=== PATIENT | female | born 1995 | race Two or more races ===

== ENCOUNTER 2019-01-06 17:19 | Emergency (ER) | payer OTHER ==
[~2019-01-06] VITALS: Ht 142.2 cm; Wt 65.8 kg
--- NOTE | 2019-01-06 17:36 | NUR ---
ED Nurse Note: PT WALKED IN DUE TO LEFT SIDE BODY PAIN X 1 WEEK AGO. DENIES RECENT TRAUMA. PT TOOK IBUPROFEN AT HOME AND STATED THAT IT DIDN'T HELP HIM. PT IS AAO X4, AMBULATES WITH STEADY GAIT. ABLE TO TOLERATE ROM. PAIN IS 7/10. ERMD AT THE BED SIDE.
[2019-01-06 17:45] VITALS: BP 124/69
[2019-01-06] MEDS ORDERED: Methocarbamol 750mg tab ORAL ONE (17:45)
[2019-01-06] MEDS ORDERED: Ketorolac 60mg Inj IM ONE (17:45)
--- NOTE | 2019-01-06 17:50 | NUR ---
ED Nurse Note: seen and examined by jeevan, pt medicated and tolerated well. will continue to monitor
[2019-01-06] MEDS ORDERED: ROBAXIN-750750 MG PO (17:59)
[2019-01-06] MEDS ORDERED: IBUPROFEN600 MG ORAL (17:59)
[2019-01-06 18:34] VITALS: BP 124/69
--- NOTE | 2019-01-06 18:34 | NUR ---
ER DISCHARGE NOTE: Patient is cleared to be discharged per ERMD, pt is aox4, on room air, with stable vital signs. pt was given dc and prescription instructions, pt was able to verbalize understanding, pt id band removed without complications. pt is able to ambulate with steady gait. pt took all belongings.
--- NOTE | 2019-01-06 18:50 | Emergency Room Report ---
History of Present Illness General Chief Complaint: Pain Source: Patient Present Illness HPI Patient presents with complaints of pain to the left side of body. initially reports pain Allergies: Coded Allergies: No Known Allergies (Unverified , 01/06/19) Patient History Last Menstrual Period: 11/26/18 Now: No Nursing Documentation-[facility] Past Medical History: No Stated History Physical Exam Vital Signs Date Time Temp Pulse Resp B/P (MAP) Pulse Ox O2 Delivery O2 Flow Rate FiO2 01/06/19 17:26 98.6 72 20 124/69 (87) 98 Room Air Medical Decision Making Diagnostic Impression: Primary Impression: sciatica Additional Impression: back pain Labs Test 01/06/19 18:05 Urine HCG, Qualitative Negative (NEGATIVE) Last Vital Signs Date Time Temp Pulse Resp B/P (MAP) Pulse Ox O2 Delivery O2 Flow Rate FiO2 01/06/19 17:45 98.6 72 20 124/69 98 Room Air Status: improved Disposition: HOME, SELF-CARE Condition: Improved Scripts Methocarbamol* (ROBAXIN-750*) 750 Mg Tablet 750 MG PO TID, #21 TAB 0 Refills Prov: Kanwal Santos DO 01/06/19 Ibuprofen* (MOTRIN*) 600 Mg Tablet 600 MG ORAL Q8H PRN for For Pain, #20 TAB 0 Refills Prov: Kanwal Santos DO 01/06/19 Referrals: [facility] Departure Forms: Return to Work Return to Work in (Days): 2 Return to Work Date: Jan 08, 2019 Patient Instructions: Sciatica, [id number], Back Pain, Adult, [id number] Additional Instructions: Patient is provided with the discharge instructions notified to follow up with primary doctor in the next 2-3 days otherwise return to the er with any worsening symptoms. Please note that this report is being documented using [employer] technology. This can lead to erroneous entry secondary to incorrect interpretation by the dictating instrument. Kanwal Santos DO Jan 06, 2019 18:50
== END 2019-01-06 18:34 | disposition home or self-care (01) ==
LOC: EMR 18:10
DX: M54.30 Sciatica, unspecified side (principal); M54.9 Dorsalgia, unspecified
CPT/HCPCS: 81025; 96372; 99283

== ENCOUNTER 2019-07-10 13:43 | Emergency (ER) | payer OTHER ==
[~2019-07-10] VITALS: Ht 142.2 cm; Wt 68.0 kg
[~2019-07-10 13:43] MED LIST: IBUPROFEN600 MG ORAL; ROBAXIN-750750 MG PO
[2019-07-10 14:00] VITALS: BP 114/58
--- NOTE | 2019-07-10 14:00 | NUR ---
ED Nurse Note: Patient arrived to ED from home complaining of sore throat and fever x 3 days. Patient AxO x 4, no s/s of acute distress. Patient bed in lowest position. Skin intact. Blood and urine sent to lab.
[2019-07-10] MEDS ORDERED: Acetaminophen 500mg (ES) tab ORAL ONE (14:15)
--- NOTE | 2019-07-10 14:16 | Emergency Room Report ---
History of Present Illness General Chief Complaint: Flu Like Symptoms Source: Patient Present Illness HPI Disclaimer: Please note that this report is being documented using [employer] technology. This can lead to erroneous entry secondary to incorrect interpretation by the dictating instrument. HPI: 23-year-old otherwise healthy female presents for evaluation of fever, cough, sore throat. Symptoms present approximately 3 days. Notes intermittent fevers as high as 102 at home. Worsening sore throat and intermittent cough. Reports nausea with some bilious emesis. Denies hematemesis, abdominal pain, diarrhea. No rash. Denies headaches. Reports nasal congestion. Did not receive a flu shot this year. Use Tylenol at home once. No other medications. PMH: Denies PSH: Denies Allergies: Denies Social Hx: Denies drug or alcohol abuse Allergies: Coded Allergies: No Known Allergies (Unverified , 01/06/19) Patient History Now: No Nursing Documentation-PMH Past Medical History: No Stated History Review of Systems All Other Systems: negative except mentioned in HPI Physical Exam Vital Signs Date Time Temp Pulse Resp B/P (MAP) Pulse Ox O2 Delivery O2 Flow Rate FiO2 07/10/19 13:54 100.4 110 18 114/58 (76) 99 Room Air General: Awake and alert, appears mildly uncomfortable, febrile HEENT: NC/AT. EOMI. anicteric sclera. Uvula is midline. Tonsils are 2+. No edema or exudate on the tonsils. The pharynx is deeply erythematous without exudate. Neck: Supple, trachea midline. No anterior posterior lymphadenopathy Chest Wall: No tenderness, no deformity Cardiovascular: Tachycardic. S1 and S2 normal. No murmur appreciated Resp: Normal work of breathing. Intermittent cough. No wheezing, no crackles. Abdomen: Abdomen is soft, nondistended. Nontender Skin: Intact. No abrasions, laceration or rash over the exposed skin MSK: Normal tone and bulk. Moving all extremities. No obvious deformity. Neuro: Awake and alert. Mentating appropriately. Medical Decision Making Diagnostic Impression: Primary Impression: Influenza B Additional Impressions: Upper respiratory infection Pharyngitis ER Course 23-year-old female presents for evaluation of 3 days URI symptoms and fevers with intermittent vomiting. Differential includes was not limited to viral syndrome, influenza, pharyngitis, viral pneumonia, bacterial pneumonia, bronchitis, bronchospasm, gastroenteritis. Patient is tachycardic and borderline febrile. We will start IV fluids, give antipyretics, steroids for sore throat, check screening labs and obtain a chest x-ray to rule out pneumonia. Does not meet [facility] criteria for treatment with antibiotics for pharyngitis Laboratory Tests Test 07/10/19 14:20 White Blood Count 6.9 K/UL (4.8-10.8) Red Blood Count 4.50 M/UL (4.20-5.40) Hemoglobin 13.7 G/DL (12.0-16.0) Hematocrit 41.0 % (37.0-47.0) Mean Corpuscular Volume 91 FL (80-99) Mean Corpuscular Hemoglobin 30.3 PG (27.0-31.0) Mean Corpuscular Hemoglobin Concent 33.3 G/DL (32.0-36.0) Red Cell Distribution Width 11.4 % (11.6-14.8) L Platelet Count 215 K/UL (150-450) Mean Platelet Volume 7.7 FL (6.5-10.1) Neutrophils (%) (Auto) 80.2 % (45.0-75.0) H Lymphocytes (%) (Auto) 10.9 % (20.0-45.0) L Monocytes (%) (Auto) 8.1 % (1.0-10.0) Eosinophils (%) (Auto) 0.0 % (0.0-3.0) Basophils (%) (Auto) 0.9 % (0.0-2.0) Sodium Level 137 MMOL/L (136-145) Potassium Level 3.7 MMOL/L (3.5-5.1) Chloride Level 99 MMOL/L (98-107) Carbon Dioxide Level 26 MMOL/L (21-32) Anion Gap 13 mmol/L (5-15) Blood Urea Nitrogen 6 mg/dL (7-18) L Creatinine 0.8 MG/DL (0.55-1.30) Estimate Glomerular Filtration Rate > 60 mL/min (>60) Glucose Level 120 MG/DL (74-106) H Calcium Level 8.8 MG/DL (8.5-10.1) Chest X-Ray Diagnostic Results Chest X-Ray Diagnostic Results : Chest X-Ray Ordered: Yes # of Views/Limited/Complete: 1 View Indication: Other - cough EP Interpretation: Yes Interpretation: no consolidation, no effusion, no pneumothorax, no acute cardiopulmonary disease Impression: No acute disease Electronically Signed by: Electronically signed by Dr. Cheo Rush Reevaluation Time: 15:04 Last Vital Signs Date Time Temp Pulse Resp B/P (MAP) Pulse Ox O2 Delivery O2 Flow Rate FiO2 07/10/19 13:54 100.4 110 18 114/58 (76) 99 Room Air Reevaluation Impression Blood work largely unremarkable. The patient is influenza B positive. We will start oseltamavir. No evidence of infiltrate on chest x-ray. Vital signs of improved. Stable for outpatient treatment. Discussed hand hygiene and contact precautions. Will follow up with her PMD. Discussed return precautions. She understands and agrees with this treatment plan. Disposition: HOME, SELF-CARE Condition: Stable Scripts Oseltamivir Phosphate (Tamiflu) 75 Mg Capsule 75 MG ORAL TWICE A DAY for 5 Days, #10 CAP Prov: Cheo Rush MD 07/10/19 Cheo Rush MD Jul 10, 2019 14:16
[2019-07-10 14:50] LABS: BASOPHILS % (AUTO) 0.9 % (0.0-2.0); HEMOGLOBIN 13.7 G/DL (12.0-16.0); LYMPHOCYTES % (AUTO) 10.9 % (20.0-45.0); MEAN CORPUSCULAR VOLUME 91 FL (80-99); MONOCYTES % (AUTO) 8.1 % (1.0-10.0); NEUTROPHILS % (AUTO) 80.2 % (45.0-75.0); PLATELET COUNT 215 K/UL (150-450); RED CELL DISTRIBUTION WIDTH 11.4 % (11.6-14.8); WHITE BLOOD COUNT 6.9 K/UL (4.8-10.8)
--- NOTE | 2019-07-10 14:50 | NUR ---
ED Nurse Note: Xray at bedside.
[2019-07-10 15:01] LABS: ANION GAP 13 mmol/L (5-15); BLOOD UREA NITROGEN 6 mg/dL (7-18); CALCIUM 8.8 MG/DL (8.5-10.1); CARBON DIOXIDE 26 MMOL/L (21-32); CHLORIDE 99 MMOL/L (98-107); CREATININE 0.8 MG/DL (0.55-1.30); POTASSIUM 3.7 MMOL/L (3.5-5.1); SODIUM 137 MMOL/L (136-145)
[2019-07-10] MEDS ORDERED: TAMIFLU75 MG ORAL (15:10)
[2019-07-10 15:22] VITALS: BP 119/62
--- NOTE | 2019-07-10 15:22 | NUR ---
ED Nurse Note: Patient cleared for discharge by Dr. Rush. Patient AxO x 4, no s/s of acute distress, steady gait. Patient verbalized understanding of discharge and medication instructions. ID band removed. IV removed without complication.
--- NOTE | 2019-07-10 15:36 | Diagnostic Imaging Report ---
Indication: Cough Technique: One view of the chest Comparison: none Findings: Lungs and pleural spaces are clear. Heart size is normal. Impression: No acute process
== END 2019-07-10 15:22 | disposition home or self-care (01) ==
LOC: EMR 14:55
DX: J11.1 Influenza due to unidentified influenza virus with other respiratory manifestations (principal)
CPT/HCPCS: 36415; 71045; 80048; 85025; 86710; 96360; J7030; J8540; Z7502; 99284